=== PATIENT | female | born 1995 | race Caucasian/White ===

== ENCOUNTER 2022-08-27 11:04 | Emergency (ER) | payer MEDICAID ==
[2022-08-27 11:29] VITALS: BP 117/62; PULSE 82
== END 2022-08-27 12:06 | disposition home or self-care (01) ==
LOC: JP.ED 11:04
DX: O9A.213 Injury, poisoning and certain other consequences of external causes complicating pregnancy, third trimester (principal); S39.011A Strain of muscle, fascia and tendon of abdomen, initial encounter; O99.283 Endocrine, nutritional and metabolic diseases complicating pregnancy, third trimester; E03.9 Hypothyroidism, unspecified; Z88.0 Allergy status to penicillin; Z79.899 Other long term (current) drug therapy; Z3A.33 33 weeks gestation of pregnancy
CPT/HCPCS: 99282; 99283